=== PATIENT | male | born 1935 | race Caucasian/White ===

== ENCOUNTER 2018-12-08 06:40 | Day surgery (SDC) | payer MEDICARE, OTHER ==
[~2018-12-08 06:40] MED LIST: KETOROLAC TROMETHAMINE 0.45% 4 DROP/0.4 ML DROPERETTE OS PRN
[2018-12-08] MEDS ORDERED: MIDAZOLAM 2 MG/2 ML INJ ONE (07:02)
[2018-12-08] MEDS: TETRACAINE HCL 0.5% OPH SOLN 4 ML OS PRN ×3 (07:02→07:56)
[2018-12-08] MEDS: TROPICAMIDE 1% OPH SOLN 3 ML OS PRN ×3 (07:03→07:39)
[2018-12-08] MEDS: CYCLOPENTOLATE 0.2%/PHENYLEPHRINE 1% OPH SOLN 2 ML OS PRN ×3 (07:03→07:39)
[2018-12-08] MEDS: BESIFLOXACIN HCL 0.6% OPH SUSP 5 ML BOTTLE OS PRN ×4 (07:03→08:28)
[2018-12-08] MEDS ORDERED: EPINEPHRINE INJ/PF 1 MG/1 ML AMPULE ONE (07:07)
[2018-12-08] MEDS ORDERED: LIDOCAINE 1% INJ-PF (10 MG/ML) 30 ML SDV ONE (07:08)
[2018-12-08] MEDS ORDERED: CHONDR SU A NA/HYALUR INTRAOC KIT (SURGICARE) ONE (07:08)
--- NOTE | 2018-12-08 21:52 | [facility] OPERATIVE REPORT E ---
[facility] Operative Report NAME: BRITTANIE ROSENBERG AGE: 83Y DATE OF SURGERY: 12/08/2018 ROOM: PREOPERATIVE DIAGNOSIS: CATARACT, LEFT EYE. POSTOPERATIVE DIAGNOSIS: CATARACT, LEFT EYE. OPERATION: Cataract extraction with insertion of an IOL of the left eye. SURGEON: MASHA CASANOVA M.D. ANESTHESIA: Topical. PROCEDURE: After obtaining appropriate consent, the patient's left eye was prepped and draped in sterile fashion as well as the surgeon in a sterile manner and cataract surgery was started. First a paracentesis blade was used to make a side-port incision. Viscoelastic was used to inflate the anterior chamber. Next a 2.4 mm incision was made with a 2.4 mm blade, clear corneal temporally. A continuous capsulorrhexis was made using a cystotome and Utrata forceps. Following this hydrodissection was carried out to make the lens fully loose and mobile and it was rotated 90 degrees. Following this, a jzwdsb-zvy-dbyxrfg technique was used to phacoemulsify the lens with a CDE of 26.20. The remaining cortex was removed with irrigation/aspiration. Provisc was instilled into the capsular bag to inflate the bag. A SN60WF, 21.0 diopter lens was placed. The remaining viscoelastic material was removed with irrigation/aspiration. Following this, the incision was found to be watertight. Besivance was instilled into the eye and a protective shield was placed over the eye. The patient returned to the postoperative recovery in stable condition. DICTATING PHYSICIAN: MASHA CASANOVA M.D. [id number] PHY#: [id number] ID: [id number] JOB#: [id number] ACCT: [id number] cc:MASHA CASANOVA M.D. >
--- NOTE | 2018-12-08 21:52 | [facility] DISCHARGE SUMMARY E ---
[facility] Discharge Summary NAME: BRITTANIE ROSENBERG AGE: 83Y ADMITTED: 12/08/2018 DISCHARGED: 12/08/2018 HOSPITAL COURSE: This is an 83-year-old patient who underwent cataract extraction of the left eye. DIAGNOSIS: CATARACT, LEFT EYE. He underwent surgery because he was having difficulty seeing medicine bottles and increased glare with sunlight. DISCHARGE INSTRUCTIONS: He should be on a regular diet. No bending at his waist, no heavy lifting. He should use Vigamox, Ketorolac, and Predforte at 3 p.m. and 8 p.m. and sleep with a rigid shield. I will see him for his 1 day postoperative tomorrow. DICTATING PHYSICIAN: MASHA CASANOVA M.D. [id number] PHY#: [id number] ID: [id number] JOB#: [id number] ACCT: [id number] cc:MASHA CASANOVA M.D. >
== END 2018-12-08 09:18 | disposition home or self-care (01) ==
LOC: SC 06:40
PROVIDERS: ATTEND Internal Medicine
DX: H25.12 Age-related nuclear cataract, left eye (principal); Z96.1 Presence of intraocular lens; H43.813 Vitreous degeneration, bilateral; I10 Essential (primary) hypertension; E78.00 Pure hypercholesterolemia, unspecified; I49.9 Cardiac arrhythmia, unspecified; Z88.8 Allergy status to other drugs, medicaments and biological substances; Z79.899 Other long term (current) drug therapy; Z79.82 Long term (current) use of aspirin
CPT/HCPCS: 66984; V2632; J2250; J3490 ×3; A9270; J0171; 142

== ENCOUNTER → 2019-02-16 | Outpatient (CLI) | payer MEDICARE, OTHER ==
--- NOTE | 2019-02-16 16:12 | RADIOLOGY REPORT (SQ) ---
EXAM DESCRIPTION: ELBOW LEFT AP/LATERAL COMPLETED DATE/TIME: 02/16/2019 3:25 pm REASON FOR STUDY: M25.522 PAIN IN LEFT ELBOW M25.572 PAIN IN LEFT ANKLE AND JOINTS OF LEFT FO COMPARISON: None. NUMBER OF VIEWS: Two views left elbow. LIMITATIONS: None. FINDINGS: Osteopenic. No significant joint effusion. No acute fracture. Well corticated 8 mm poss ible loose body just posterior to the olecranon. There is olecranon soft tissue swelling which may r eflect bursitis. OTHER: No other significant finding. IMPRESSION: As above. TECHNICAL DOCUMENTATION: JOB ID: [id number] Reading location - IP/workstation name: [email or web address]
--- NOTE | 2019-02-16 16:13 | RADIOLOGY REPORT (SQ) ---
EXAM DESCRIPTION: ANKLE RIGHT COMPLETE COMPLETED DATE/TIME: 02/16/2019 3:25 pm REASON FOR STUDY: M25.522 PAIN IN LEFT ELBOW M25.572 PAIN IN LEFT ANKLE AND JOINTS OF LEFT FO COMPARISON: None. NUMBER OF VIEWS: Three views right ankle. LIMITATIONS: None. FINDINGS: Osteopenic. No mortise narrowing or talar dome lesion appreciated. Regional soft tissue swelling but no fracture. No large joint effusion suggested. OTHER: No other significant finding. IMPRESSION: Osteopenia and soft tissue swelling. TECHNICAL DOCUMENTATION: JOB ID: [id number] Reading location - IP/workstation name: [email or web address]
--- NOTE | 2019-02-16 16:29 | XCELERA REPORT ---
[address] [facility] [address] Lower Extremity Venous Evaluation Procedure: Color flow and duplex imaging bilaterally of the veins of the lower extremities as well as the Common Femoral veins. Right Sided Venous Evaluation Normal vessel filling wall to wall, compression and augmentation as well as Colour flow down to the infrageniculate veins. Left Sided Venous Evaluation Normal vessel filling wall to wall, compression and augmentation as well as Colour flow down to the infrageniculate veins. Interpretation Summary No duplex evidence of DVT or obstruction in the bilateral lower extremities. Name: BRITTANIE ROSENBERG Age: 83 yrs Gender: Male : 1935 Patient Status: Preadmit Patient Location: Study Date: 02/16/2019 02:46 PM Reason For Study: SWELLING Ordering Physician: MAYRA [place] Performed By: Rajat Mackey : MAYRA [place] > Masoud Martinez
== END ==
LOC: SP 15:50
PROVIDERS: ATTEND Internal Medicine
DX: M25.522 Pain in left elbow (principal); R22.43 Localized swelling, mass and lump, lower limb, bilateral; M25.572 Pain in left ankle and joints of left foot
CPT/HCPCS: 93970